=== PATIENT | female | born 1945 | race Caucasian/White ===

== ENCOUNTER → 2021-04-03 09:01 | Outpatient (CLI) | payer MEDICARE, SELFPAY ==
[2021-04-03 20:21] LABS: Add Manual Diff / Slide Review NO; Basophils Absolute Auto 0 /uL (0-100); Basophils Percent Auto 0.8 % (0-2); Eosinophils Absolute Auto 400 /uL (0-450); Eosinophils Percent Auto 6.8 % (2-4); Hematocrit 46.6 % (36-46); Hemoglobin 15.5 g/dL (12.0-16.0); Lymphocytes Absolute Auto 1700 /uL (1100-4500); Lymphocytes Percent Auto 32.3 % (25-40); Mean Corpuscular HGB Conc 33.2 % (30-36); Mean Corpuscular Hemoglobin 30.4 PG (26-34); Mean Corpuscular Volume 91.4 fL (80-100); Monocytes Absolute Auto 600 /uL (0-900); Monocytes Percent Auto 11.6 % (3-14); Neutrophils Absolute Auto 2600 /uL (1500-7000); Neutrophils Percent Auto 48.5 % (50-75); Platelet Count 390 X10^3/uL (150-400); Red Cell Distribution Width 13.7 % (11.6-14.8); White Blood Cell Count 5.4 X10^3/uL (4.5-11.0)
[2021-04-03 20:22] LABS: Alanine Aminotransferase 16 IU/L (<35); Albumin 4.7 g/dL (3.5-5.0); Albumin Globulin Ratio 1.3 (1.0-2.8); Alkaline Phosphatase 108 U/L (38-126); Aspartate Aminotransferase 35 IU/L (14-36); Bilirubin Total 1.1 mg/dL (0.2-1.3); Blood Urea Nitrogen 14 mg/dL (7-17); Calcium 10.1 mg/dL (8.4-10.2); Carbon Dioxide 23 mmol/L (22-32); Chloride 105 mmol/L (98-107); Cholesterol 232 mg/dL (140-199); Estimated Glomerular Filt Rate > 60.0 mL/min (>60); Globulin 3.6 g/dL (1.7-4.1); Glucose 91 mg/dL (80-110); HDL Cholesterol 49 mg/dL (40-60); HEMOLYSIS 39 (0-50); LDL Cholesterol Calculated 133 mg/dL (<100); Potassium 4.5 mmol/L (3.4-5.1); Sodium 140 mmol/L (137-145); Total Protein 8.3 g/dL (6.3-8.2); Triglycerides 252 mg/dL (35-150)
== END ==
PROVIDERS: Family Provider Family Medicine; PCP Family Medicine; Visit Provider Family Medicine
DX: E78.5 Hyperlipidemia, unspecified (principal); I10 Essential (primary) hypertension
CPT/HCPCS: 80053; 80061; 85025

== ENCOUNTER → 2022-05-08 12:03 | Outpatient (CLI) | payer MEDICARE, SELFPAY ==
[2022-05-08 20:35] LABS: Alanine Aminotransferase 17 IU/L (<35); Albumin 4.2 g/dL (3.5-5.0); Albumin Globulin Ratio 1.4 (1.0-2.8); Alkaline Phosphatase 74 U/L (38-126); Aspartate Aminotransferase 28 IU/L (14-36); BUN Creatinine Ratio 24.1 (6-22); Bilirubin Total 1.4 mg/dL (0.2-1.3); Blood Urea Nitrogen 14 mg/dL (7-17); Calcium 9.3 mg/dL (8.4-10.2); Carbon Dioxide 27 mmol/L (22-32); Chloride 103 mmol/L (98-107); Cholesterol 186 mg/dL (140-199); Estimated Glomerular Filt Rate > 60 mL/min (>60); Globulin 3.1 g/dL (1.7-4.1); Glucose 85 mg/dL (80-110); HDL Cholesterol 45 mg/dL (40-60); HEMOLYSIS 24 (0-50); LDL Cholesterol Calculated 100 mg/dL (<100); Potassium 4.3 mmol/L (3.4-5.1); Sodium 137 mmol/L (137-145); Total Protein 7.3 g/dL (6.3-8.2); Triglycerides 207 mg/dL (35-150)
[2022-05-08 20:41] LABS: Add Manual Diff / Slide Review NO; Basophils Absolute Auto 0 /uL (0-100); Basophils Percent Auto 0.4 % (0-2); Eosinophils Absolute Auto 100 /uL (0-450); Eosinophils Percent Auto 1.9 % (2-4); Hematocrit 42.5 % (36-46); Hemoglobin 14.7 g/dL (12.0-16.0); Lymphocytes Absolute Auto 1700 /uL (1100-4500); Lymphocytes Percent Auto 32.9 % (25-40); Mean Corpuscular HGB Conc 34.6 % (30-36); Mean Corpuscular Hemoglobin 31.3 PG (26-34); Mean Corpuscular Volume 90.5 fL (80-100); Monocytes Absolute Auto 600 /uL (0-900); Monocytes Percent Auto 12.3 % (3-14); Neutrophils Absolute Auto 2700 /uL (1500-7000); Neutrophils Percent Auto 52.5 % (50-75); Platelet Count 300 X10^3/uL (150-400); Red Cell Distribution Width 12.9 % (11.6-14.8); White Blood Cell Count 5.1 X10^3/uL (4.5-11.0)
[2022-05-08 21:26] LABS: Hep C Virus Ab w/Reflex Quant NEGATIVE s/c (NEGATIVE)
== END ==
PROVIDERS: Family Provider Family Medicine; PCP Family Medicine; Visit Provider Family Medicine
DX: I10 Essential (primary) hypertension (principal); Z11.59 Encounter for screening for other viral diseases; E78.2 Mixed hyperlipidemia
CPT/HCPCS: 80053; 80061; 85025; 86803

== ENCOUNTER → 2022-05-13 09:33 | Outpatient (CLI) | payer MEDICARE, SELFPAY ==
[2022-05-20 17:11] LABS: Fecal Immunochemical Test Negative (Negative)
== END ==
PROVIDERS: Family Provider Family Medicine; PCP Family Medicine; Visit Provider Family Medicine
DX: Z12.11 Encounter for screening for malignant neoplasm of colon (principal)
CPT/HCPCS: 82274

== ENCOUNTER → 2023-05-05 09:09 | Outpatient (CLI) | payer MEDICARE, SELFPAY ==
[2023-05-05 19:55] LABS: Alanine Aminotransferase 20 IU/L (<35); Albumin 4.2 g/dL (3.5-5.0); Albumin Globulin Ratio 1.2 (1.0-2.8); Alkaline Phosphatase 76 U/L (38-126); Aspartate Aminotransferase 28 IU/L (14-36); Bilirubin Total 1.2 mg/dL (0.2-1.3); Blood Urea Nitrogen 12 mg/dL (7-17); Calcium 9.3 mg/dL (8.4-10.2); Carbon Dioxide 29 mmol/L (22-32); Chloride 100 mmol/L (98-107); Cholesterol 188 mg/dL (140-199); Estimated Glomerular Filt Rate > 60 mL/min (>60); Globulin 3.5 g/dL (1.7-4.1); Glucose 92 mg/dL (80-110); HDL Cholesterol 43 mg/dL (40-60); LDL Cholesterol Calculated 102 mg/dL (<100); Sodium 136 mmol/L (137-145); Total Protein 7.7 g/dL (6.3-8.2); Triglycerides 216 mg/dL (35-150)
[2023-05-05 20:05] LABS: Add Manual Diff / Slide Review NO; Basophils Absolute Auto 0 /uL (0-100); Basophils Percent Auto 0.7 % (0-2); Eosinophils Absolute Auto 100 /uL (0-450); Hematocrit 42.8 % (36-46); Hemoglobin 14.6 g/dL (12.0-16.0); Lymphocytes Absolute Auto 1900 /uL (1100-4500); Lymphocytes Percent Auto 31.6 % (25-40); Mean Corpuscular HGB Conc 34.1 % (30-36); Mean Corpuscular Hemoglobin 30.6 PG (26-34); Mean Corpuscular Volume 89.8 fL (80-100); Monocytes Absolute Auto 800 /uL (0-900); Monocytes Percent Auto 13.3 % (3-14); Neutrophils Absolute Auto 3200 /uL (1500-7000); Neutrophils Percent Auto 52.4 % (50-75); Platelet Count 300 X10^3/uL (150-400); Red Blood Cell Count 4.76 X10^6/uL (4.0-5.2); White Blood Cell Count 6.1 X10^3/uL (4.5-11.0)
[2023-05-05 20:07] LABS: HEMOLYSIS 18 (0-50)
[2023-05-05 20:17] LABS: TSH w/ Reflex to FT4 2.85 uIU/mL (0.47-4.68)
[2023-05-06 22:14] LABS: x Labcorp Estim. Avg Glu (eAG) 114 mg/dL (.); x Labcorp Hemoglobin A1c 5.6 % (4.8-5.6)
== END ==
PROVIDERS: Family Provider Family Medicine; PCP Family Medicine; Visit Provider Family Medicine
DX: I10 Essential (primary) hypertension (principal); E78.2 Mixed hyperlipidemia; H91.90 Unspecified hearing loss, unspecified ear; Z68.41 Body mass index [BMI] 40.0-44.9, adult
CPT/HCPCS: 80053; 80061; 83036; 84443; 85025

== ENCOUNTER → 2024-05-12 08:49 | Outpatient (CLI) | payer MEDICARE, SELFPAY ==
[2024-05-12 20:19] LABS: Add Manual Diff / Slide Review NO; Basophils Absolute Auto 0 /uL (0-100); Basophils Percent Auto 0.6 % (0-2); Eosinophils Absolute Auto 100 /uL (0-450); Eosinophils Percent Auto 2.5 % (2-4); Hematocrit 44.2 % (36-46); Hemoglobin 14.9 g/dL (12.0-16.0); Lymphocytes Absolute Auto 2400 /uL (1100-4500); Lymphocytes Percent Auto 44.5 % (25-40); Mean Corpuscular HGB Conc 33.7 % (30-36); Mean Corpuscular Hemoglobin 30.8 PG (26-34); Mean Corpuscular Volume 91.4 fL (80-100); Monocytes Absolute Auto 700 /uL (0-900); Neutrophils Absolute Auto 2100 /uL (1500-7000); Neutrophils Percent Auto 39.4 % (50-75); Platelet Count 292 X10^3/uL (150-400); Red Blood Cell Count 4.84 X10^6/uL (4.0-5.2); Red Cell Distribution Width 13.6 % (11.6-14.8); White Blood Cell Count 5.4 X10^3/uL (4.5-11.0)
[2024-05-12 20:20] LABS: Hemoglobin A1C% w Est Avg Glu 5.2 % (4.0-6.0)
[2024-05-12 20:24] LABS: Alanine Aminotransferase 20 IU/L (<35); Albumin 4.2 g/dL (3.5-5.0); Albumin Globulin Ratio 1.2 (1.0-2.8); Alkaline Phosphatase 67 U/L (38-126); Aspartate Aminotransferase 31 IU/L (14-36); BUN Creatinine Ratio 24.2 (6-22); Bilirubin Total 1.4 mg/dL (0.2-1.3); Blood Urea Nitrogen 15 mg/dL (7-17); Calcium 9.6 mg/dL (8.4-10.2); Carbon Dioxide 26 mmol/L (22-32); Chloride 105 mmol/L (98-107); Cholesterol 212 mg/dL (140-199); Estimated Glomerular Filt Rate > 60 mL/min (>60); Globulin 3.4 g/dL (1.7-4.1); Glucose 92 mg/dL (80-110); HDL Cholesterol 45 mg/dL (40-60); HEMOLYSIS 30 (0-50); LDL Cholesterol Calculated 123 mg/dL (<100); Potassium 4.1 mmol/L (3.4-5.1); Sodium 137 mmol/L (137-145); Total Protein 7.6 g/dL (6.3-8.2); Triglycerides 218 mg/dL (35-150)
[2024-05-12 20:53] LABS: Thyroid Stimulating Hormone 3.21 uIU/mL (0.47-4.68)
== END ==
PROVIDERS: Family Provider Family Medicine; PCP Family Medicine; Referring Provider Family Medicine; Visit Provider Family Medicine
DX: I10 Essential (primary) hypertension (principal); Z13.1 Encounter for screening for diabetes mellitus; Z83.3 Family history of diabetes mellitus; E78.2 Mixed hyperlipidemia
CPT/HCPCS: 80053; 80061; 83036; 84443; 85025

== ENCOUNTER → 2025-04-03 10:31 | Outpatient (CLI) | payer MEDICARE, SELFPAY ==
[2025-04-03 19:28] LABS: Hematocrit 44.3 % (36-46); Hemoglobin 15.0 g/dL (12.0-16.0); Mean Corpuscular HGB Conc 33.9 % (30-36); Mean Corpuscular Hemoglobin 31.2 PG (26-34); Mean Corpuscular Volume 91.8 fL (80-100); Platelet Count 271 X10^3/uL (150-400)
[2025-04-03 19:42] LABS: Hemoglobin A1C% w Est Avg Glu 5.2 % (4.0-6.0)
[2025-04-03 19:43] LABS: Alanine Aminotransferase 22 IU/L (<35); Albumin 4.6 g/dL (3.5-5.0); Albumin Globulin Ratio 1.4 (1.0-2.8); Alkaline Phosphatase 63 U/L (38-126); Blood Urea Nitrogen 15 mg/dL (7-17); Calcium 9.7 mg/dL (8.4-10.2); Carbon Dioxide 26 mmol/L (22-32); Chloride 100 mmol/L (98-107); Estimated Glomerular Filt Rate > 60 mL/min (>60); Globulin 3.3 g/dL (1.7-4.1); Glucose 99 mg/dL (70-99); HEMOLYSIS < 15 (0-50); Potassium 4.4 mmol/L (3.4-5.1); Sodium 137 mmol/L (137-145); Total Protein 7.9 g/dL (6.3-8.2)
== END ==
PROVIDERS: Family Provider Family Medicine; PCP Family Medicine; Visit Provider Family Medicine
DX: Z13.1 Encounter for screening for diabetes mellitus (principal); I10 Essential (primary) hypertension; E78.2 Mixed hyperlipidemia; Z83.3 Family history of diabetes mellitus; E66.01 Morbid (severe) obesity due to excess calories; Z68.41 Body mass index [BMI] 40.0-44.9, adult
CPT/HCPCS: 80053; 83036; 83721; 85027

== ENCOUNTER 2025-05-24 06:21 | Day surgery (SDC) | payer MEDICARE, OTHER, SELFPAY ==
[2025-05-19 12:13] VITALS: BMI 43.5
[2025-05-24] VITALS (8 sets, daily range): BP systolic 110–139; BP diastolic 60–86; PULSE 74–86; RESP 12–20; TEMP 36.3–36.9; O2SAT 94–98; BMI 42.7
--- NOTE | 2025-05-24 | DI.RAD.S_ITS ---
PROCEDURE: XR CHOLANGIOGRAM OPERATIVE INDICATIONS: LAP LORENZA COMPARISON: [facility], , ABDOMEN LIMITED, 05/01/2025, 13:28. FINDINGS/IMPRESSION: Fluoroscopic imaging was performed for intraoperative localization. Please correlate with intraoperative findings. Dictated by: Darien Hayes M.D. on 05/24/2025 at 12:40 Approved by: Darien Hayes M.D. on 05/24/2025 at 12:40
--- NOTE | 2025-05-24 | PATH_ITS ---
[facility] Accession Number: [id number] No. of containers..01 Tissue . 01 Material submitted: . gallbladder - GALLBLADDER . 01 Diagnosis: GALLBLADDER, CHOLECYSTECTOMY: Mild chronic calculous cholecystitis and reactive changes. Negative for malignancy. [facility] 05/31/2025 1024 Local . 01 Electronically signed: . Power Starks MD, Pathologist NPI- [id number] . 01 Gross description: . Received in formalin labeled with two patient identifiers and gallbladder, and consists of a 10.5 x 4.1 x 3.4 cm unopened gallbladder. The serosal surface is naik-green, smooth, and glistening. There is a 0.5 x 0.4 cm probe patent, clipped cystic duct which is inked blue. The gallbladder wall is uniformly thick at 0.2 cm. The mucosa is naik-red, finely granular, and free of exophytic lesions or polyps. The lumen is filled with approximately 80 cc of viscid bile admixed with a 1.5 x 1.0 x 0.4 cm aggregate of black, crushed, multifaceted gallstones. [employer] sections are submitted in cassette A1 to include cystic duct. ([id number]) /REAGAN 05/30/2025 0956 Local . 01 Pathologist provided ICD-10: K80.10 . 01 CPT . 452044 Specimen Comment: A courtesy copy of this report has been sent to [facility] Pathology Performed at: [address] [id number] MD Pedro Fischer MD Phone: [phone]
--- NOTE | 2025-05-24 07:22 | PM.PREOP ---
Pre-operative Note Interval Note History & Physical reviewed/Exam performed by Physician: Yes Changes to H&P: No ASA Class (for procedural sedation): II
[2025-05-24] MEDS: LACTATED RINGERS 1,000 ML 42 ML IV ×2 (07:26→08:56)
--- NOTE | 2025-05-24 08:13 | SUR.OPER ---
Supine on padded OR bed, head on pillow, safety belt at thigh, bilateral arms padded and tucked at side, purple strap accross shoulders. Legs uncrossed. Padded footboard in place. Tape over blanket to secure lower legs.
[2025-05-24] MEDS: BUPivacaine 0.25% W/ EPI (PF) 30 ML VIAL 60 ML INJ (08:31)
--- NOTE | 2025-05-24 09:45 | PM.OP.1 ---
Operative Date/Time/Diagnoses Date of procedure: 05/24/25 Time of procedure: 09:45 Pre-op diagnosis: Calculous cholecystitis Post-op diagnosis: same Procedure & Clinicians Procedure: Robotic assisted laparoscopic cholecystectomy with cholangiogram Same procedure(s) as scheduled: Yes Indications: 80yo F, symptomatic cholelithiasis Surgeon: Tong Encarnacion Click Yes if Unassisted: Yes Anesthesia Type: General Operative Notes Findings: Omental adhesions c/w chronic cholecystitis. Normal cholangiogram Closure Type: primary Specimen(s): other (gallbladder) Applied: none Estimated Blood Loss (mL): 25 Blood products transfused: none Procedure in detail: After informed consent and satisfactory general endotracheal anesthesia, the abdomen was prepped and draped in the usual sterile manner. Surgical time-out performed with all team members in agreement. The patient received appropriate preoperative antibiotics and VTE prophylaxis. The pneumoperitoneum was established to a pressure of 15 mmHg with carbon dioxide gas via a Tavarez direct trocar cutdown technique lateral to the umbilicus. There was no trauma secondary to the trocar insertion noted. Bilateral TAP blocks were performed injecting 25 cc of 0.25% Marcaine with epinephrine into the transversus muscle bilaterally. A total of 60 cc of local was used. Three 8 mm robotic trocars inserted under direct vision. The patient was placed in reverse Trendelenburg, [id number] position. The robot was docked and the remainder of the procedure was completed robotically. The fundus of the gallbladder was grasped and retracted over the liver; the infundibulum was grasped and retracted laterally for proper exposure of the cystic duct and artery. There were greater omental adhesions to the gallbladder consistent with chronic cholecystitis. These were taken down easily with hook cautery. The cystic duct and artery were skeletonized with hook cautery and the plane was preserved and easy to dissect. We had two distinct structures entering the gallbladder with segment 5 of the liver posterior to this consistent with the critical view of safety. The cystic artery was doubly clipped and divided with scissors initially to allow further skeletonization of the cystic duct. The cystic duct was clipped and a ductotomy made with scissors. The yellow ureteral catheter was brought through a 14 gauge Angiocath in the right subcostal margin and a cholangiogram was obtained. This demonstrated normal left and right hepatic ducts, common hepatic duct, common bile duct and there was no obstruction to flow of contrast into the duodenum. There were no filling defects or strictures noted. The cholangiogram was normal. With this the cholangiogram catheter was removed and the cystic duct was doubly clipped and divided with scissors. At this point the adhesions between the gallbladder and the liver were divided with hook cautery. This plane was preserved and was an easy dissection. The gallbladder was placed into an endo-pouch and removed. The liver bed was inspected in addition to the cystic duct and artery and there was no bleeding or bile drainage noted. The pneumoperitoneum was released, the trocars were removed, the 0 Vicryl [id number] suture was tied on the fascia for the Tavarez trocar cutdown and there were no palpable fascial defects. The skin is closed using 4-0 Monocryl in a subcuticular manner. Dermabond glue was applied as a final dressing. The instrument sponge and needle counts were all correct x2. The patient tolerated the procedure well and was extubated in the operating room and transported to the recovery area in stable condition. Complications: none
[2025-05-24] MEDS: ONDANSETRON 4 MG/2 ML INJ IV (10:24)
[2025-05-24] MEDS: ACETAMINOPHEN IV 1,000 MG/100 ML VIAL 400 MG IV (10:24)
[2025-05-24] MEDS: BENZOCAINE/MENTHOL 1 LOZ PKT 1 EACH PO (12:20)
--- NOTE | 2025-05-24 14:29 | SUR.PHASEII ---
Pt dressed and ready for DC since 1300. Son boat delayed. Resting, dozing intermittently, eating crackers. Juice.
== END 2025-05-24 15:42 | disposition home or self-care (01) ==
PROVIDERS: PCP Family Medicine; Referring Provider Surgery; Visit Provider Surgery
PROC: 0FT44ZZ Resection of Gallbladder, Percutaneous Endoscopic Approach (ICD-10-PCS; CPT 47563; principal; 2025-05-24 07:45)
DX: K80.10 Calculus of gallbladder with chronic cholecystitis without obstruction (principal)
CPT/HCPCS: 47563; 74300; J0131; J0330; J0690; J1100; J1171; J2405; J2704; J3010; J3490; Q9967